=== PATIENT | male | born 1985 | race Caucasian/White ===

== ENCOUNTER 2021-07-21 03:58 | Emergency (ER) | payer SELFPAY ==
[~2021-07-21] VITALS: Ht 170.2 cm; Wt 79.0 kg
[2021-07-21] MEDS ORDERED: NAPR-1176 MT (04:22)
[2021-07-21] MEDS ORDERED: IBUPROFEN 600MG TABLET PO ONE (04:30)
[2021-07-21 05:32] VITALS: BP 129/68
== END 2021-07-21 05:33 | disposition home or self-care (01) ==
LOC: ER 03:58
DX: M54.50 Low back pain, unspecified (principal)
CPT/HCPCS: 99283

== ENCOUNTER 2022-10-19 11:28 | Emergency (ER) | payer MEDICAID ==
[~2022-10-19] VITALS: Ht 180.3 cm; Wt 90.0 kg
[~2022-10-19 11:28] MED LIST: NAPR-1176 MT
[2022-10-19 11:33] VITALS: BP 160/98
[2022-10-19] MEDS ORDERED: IBUPROFEN 600MG TABLET PO ONE (11:45)
[2022-10-19] MEDS ORDERED: ACETAMINOPHEN 325MG TABLET PO ONE (11:45)
== END 2022-10-19 11:57 | disposition home or self-care (01) ==
LOC: ER 11:55
DX: S39.012A Strain of muscle, fascia and tendon of lower back, initial encounter (principal); S33.5XXA Sprain of ligaments of lumbar spine, initial encounter; W01.0XXA Fall on same level from slipping, tripping and stumbling without subsequent striking against object, initial encounter; Y93.89 Activity, other specified; Y92.811 Bus as the place of occurrence of the external cause; Y99.8 Other external cause status
CPT/HCPCS: 99283